=== PATIENT | female | born 1985 ===

== ENCOUNTER 2022-11-15 08:19 | Outpatient (CLI) | payer OTHER | END 2022-11-15 09:48 | disposition home or self-care (01) | LOC: PRENATAL 08:19 | PROVIDERS: ATTEND Obstetrics & Gynecology Maternal & Fetal Medicine | DX: O36.80X0 Pregnancy with inconclusive fetal viability, not applicable or unspecified (principal); O09.519 Supervision of elderly primigravida, unspecified trimester; Z3A.12 12 weeks gestation of pregnancy ==

== ENCOUNTER 2023-01-10 12:54 | Outpatient (CLI) | payer OTHER | END 2023-01-10 15:17 | disposition home or self-care (01) | LOC: PRENATAL 12:54 | PROVIDERS: ATTEND Obstetrics & Gynecology Maternal & Fetal Medicine | DX: O35.3XX0 Maternal care for (suspected) damage to fetus from viral disease in mother, not applicable or unspecified (principal); O09.519 Supervision of elderly primigravida, unspecified trimester; O44.00 Complete placenta previa NOS or without hemorrhage, unspecified trimester; Z3A.20 20 weeks gestation of pregnancy ==

== ENCOUNTER 2023-04-01 09:23 | Outpatient (CLI) | payer OTHER | END 2023-04-01 09:34 | disposition home or self-care (01) | LOC: PRENATAL 09:23 | PROVIDERS: ATTEND Obstetrics & Gynecology Maternal & Fetal Medicine | DX: O26.849 Uterine size-date discrepancy, unspecified trimester (principal); O36.8199 Decreased fetal movements, unspecified trimester, other fetus; O09.519 Supervision of elderly primigravida, unspecified trimester; Z3A.32 32 weeks gestation of pregnancy ==

== ENCOUNTER 2023-05-10 13:45 | Inpatient (IN) | payer OTHER ==
[~2023-05-10] VITALS: Ht 162.6 cm; Wt 2.7 kg
[2023-05-28] MEDS ORDERED: PRENATAL CAPLE1 EAC1 PO (06:43)
[2023-05-28 06:53] LABS: PH,URINE 6.5 (5.0-8.0); URINE APPEARANCE Cloudy; URINE BILIRRUBIN Negative (NEGATIVE); URINE BLOOD Negative; URINE COLOR Yellow; URINE GLUCOSE Negative (NEGATIVE); URINE LEUKOCYTE Large; URINE NITRATE Negative; URINE PROTEIN Trace (NEGATIVE); URINE UROBILINOGEN 0.2 E.U./dl
[2023-05-28 06:54] LABS: URINE EPITHELIAL CELLS 135.2 uL (0.0-38.8); URINE RBC 7.4 uL (0.0-20.8); URINE WBC 929.9 uL (0.0-23.2)
[2023-05-28 07:04] LABS: HEMATOCRIT 31.6 % (36.0-45.00); HEMOGLOBIN 11.2 g/dL (12.0-15.00); MEAN CELL VOLUME 89.6 fL (80.00-100.00); MEAN CORPUSCULAR HEMOGLOBIN 31.7 pg (27.00-32.0); MEAN CORPUSCULAR HGB CONC 35.4 g/dl (32.0-36.0); PLATELET COUNT 151 K/uL (150-450); RED BLOOD COUNT 3.53 M/uL (4.00-6.00); RED CELL DISTRIBUTION WIDTH 13.7 % (11.5-14.5)
[2023-05-28 07:12] LABS: INR < 0.93; PARTIAL THROMBOPLASTIN TIME 28.4 SECONDS (22.0-34.0); PROTHROMBIN TIME 9.7 SECONDS (9.0-11.5)
[2023-05-28 07:21] LABS: ALBUMIN 2.9 gm/dL (3.4-5.0); BILIRUBIN TOTAL 0.42 mg/dL (0.3-1.2); CALCIUM 9.1 mg/dL (8.5-10.1); CREATININE SERUM 0.52 mg/dL (0.55-1.02); GFR 131.97; GLOBULINA 3.7 G/DL (2.4-3.5); POTASSIUM 3.59 mEq/L (3.5-5.1); TOTAL PROTEIN 6.6 gm/dL (6.4-8.2)
[2023-05-30 06:55] LABS: HEMATOCRIT 24.7 % (36.0-45.00); MEAN CELL VOLUME 91.6 fL (80.00-100.00); MEAN CORPUSCULAR HGB CONC 34.1 g/dl (32.0-36.0); PLATELET COUNT 169 K/uL (150-450); RED CELL DISTRIBUTION WIDTH 13.7 % (11.5-14.5)
[2023-05-30 06:58] LABS: MEAN CORPUSCULAR HEMOGLOBIN 31.1 pg (27.00-32.0)
[2023-05-30 06:59] LABS: HEMOGLOBIN 8.4 g/dL (12.0-15.00)
[2023-05-30 12:22] LABS: HEMATOCRIT 27.8 % (36.0-45.00); HEMOGLOBIN 9.4 g/dL (12.0-15.00); MEAN CELL VOLUME 92.4 fL (80.00-100.00); MEAN CORPUSCULAR HEMOGLOBIN 31.4 pg (27.00-32.0); PLATELET COUNT 169 K/uL (150-450); RED CELL DISTRIBUTION WIDTH 14.1 % (11.5-14.5)
[2023-06-01] MEDS ORDERED: INTEGRA PLUS C1 EACH PO (13:28)
== END 2023-06-01 14:25 | disposition home or self-care (01) | DRG 788 ==
LOC: OB/GYN 05-20 13:45 → LDR 05-28 05:35 → O/R 05-28 05:35 → OB/GYN 05-29 15:13
PROVIDERS: Specialist; ADMIT Obstetrics & Gynecology; ATTEND Obstetrics & Gynecology
PROC: 3E033VJ Introduction of Other Hormone into Peripheral Vein, Percutaneous Approach (ICD-10-PCS; 2023-05-28)
PROC: 4A1HXCZ Monitoring of Products of Conception, Cardiac Rate, External Approach (ICD-10-PCS; 2023-05-28)
PROC: 3E0P7VZ Introduction of Hormone into Female Reproductive, Via Natural or Artificial Opening (ICD-10-PCS; 2023-05-29)
PROC: 10D00Z1 Extraction of Products of Conception, Low, Open Approach (ICD-10-PCS; principal; 2023-05-29 15:15)
DX: O64.0XX0 Obstructed labor due to incomplete rotation of fetal head, not applicable or unspecified (principal); O62.1 Secondary uterine inertia; O33.8 Maternal care for disproportion of other origin; O48.0 Post-term pregnancy; Z3A.40 40 weeks gestation of pregnancy; Z37.0 Single live birth; Z20.822 Contact with and (suspected) exposure to COVID-19